=== PATIENT | female | born 1955 ===

== ENCOUNTER 2020-05-26 11:29 | Emergency (ER) | payer OTHER ==
[~2020-05-26] VITALS: Ht 154.9 cm; Wt 65.8 kg
[2020-05-26] MEDS ORDERED: VERELAN240 MG (12:19)
[2020-05-26] MEDS ORDERED: TENORMIN50 M1 (12:20)
[2020-05-26] MEDS ORDERED: METFORMIN HCL500 M2 (12:20)
[2020-05-26] MEDS ORDERED: ATACAND16 MG (12:20)
[2020-05-26] MEDS ORDERED: SULFATO FERROSO (12:21)
[2020-05-26] MEDS ORDERED: ALONDRONATE (12:26)
[2020-05-26] MEDS ORDERED: DUI500 PO (15:14)
[2020-05-26] MEDS ORDERED: NABUMETONE500 MG PO (15:14)
== END 2020-05-26 15:27 | disposition home or self-care (01) ==
LOC: ER 11:29
DX: L03.221 Cellulitis of neck (principal)

== ENCOUNTER 2021-06-16 06:32 | Emergency (ER) | payer OTHER ==
[~2021-06-16] VITALS: Ht 157.5 cm; Wt 68.0 kg
[~2021-06-16 06:32] MED LIST: ALONDRONATE; ATACAND16 MG; DUI500 PO; METFORMIN HCL500 M2; NABUMETONE500 MG PO; SULFATO FERROSO; TENORMIN50 M1; VERELAN240 MG
[2021-06-16] MEDS ORDERED: VERAPAMIL ER240 MG PO (06:50)
[2021-06-16] MEDS ORDERED: METFORMIN HCL500 M4 PO (06:50)
[2021-06-16] MEDS ORDERED: ALENDRONATE SOD70 MG PO (06:50)
[2021-06-16] MEDS ORDERED: CANDESARTAN CIL32 MG PO (06:50)
[2021-06-16] MEDS ORDERED: MACRODANTIN100 MG PO (06:50)
[2021-06-16] MEDS ORDERED: DICYCLOMINE HCL20 MG PO (06:51)
== END 2021-06-16 12:16 | disposition home or self-care (01) ==
LOC: ER 06:32
DX: K29.70 Gastritis, unspecified, without bleeding (principal); R10.32 Left lower quadrant pain